=== PATIENT | female | born 1960 | race Caucasian/White ===

== ENCOUNTER 2022-12-14 06:54 | Day surgery (SDC) | payer OTHER ==
[~2022-12-14] VITALS: Ht 157.5 cm; Wt 68.0 kg
[2022-12-14] MEDS ORDERED: fentaNYL citrate 0.05 MG/ML VIAL ONE (07:23)
[2022-12-14] MEDS ORDERED: diphenhydrAMINE 50 MG/ML VIAL ONE (07:23)
[2022-12-14] MEDS ORDERED: MIDAZOLAM 5 MG/5 ML VIAL ONE (07:23)
[2022-12-14] MEDS ORDERED: MIDAZOLAM 2 MG/2 ML VIAL IV ONE (08:20)
[2022-12-14] MEDS ORDERED: fentaNYL citrate 0.05 MG/ML VIAL IVP ONE (08:20)
== END 2022-12-14 08:45 | disposition home or self-care (01) ==
LOC: MDS 06:54 → MMU 06:55 → MDS 08:45
PROVIDERS: ATTEND Internal Medicine Gastroenterology
DX: R10.13 Epigastric pain (principal); K21.9 Gastro-esophageal reflux disease without esophagitis; K29.70 Gastritis, unspecified, without bleeding; K31.89 Other diseases of stomach and duodenum; M79.7 Fibromyalgia; M06.9 Rheumatoid arthritis, unspecified; E78.5 Hyperlipidemia, unspecified; M19.90 Unspecified osteoarthritis, unspecified site; Z88.0 Allergy status to penicillin; Z88.1 Allergy status to other antibiotic agents; Z88.5 Allergy status to narcotic agent; Z79.899 Other long term (current) drug therapy; Z80.0 Family history of malignant neoplasm of digestive organs; Z87.11 Personal history of peptic ulcer disease; Z98.890 Other specified postprocedural states
CPT/HCPCS: 43239; 88305; 88312; 88313; 88342; J2250; J3010; J1200

== ENCOUNTER 2024-01-19 09:47 | Day surgery (SDC) | payer OTHER ==
[~2024-01-19] VITALS: Ht 157.5 cm; Wt 67.1 kg
[2024-01-19] MEDS ORDERED: fentaNYL citrate 0.05 MG/ML VIAL ONE (12:20)
[2024-01-19] MEDS: fentaNYL citrate 0.05 MG/ML VIAL IVP ONE (12:25)
[2024-01-19] MEDS: LIDOCAINE 2% 100 MG/5 ML UJET TP ONE (12:29)
== END 2024-01-19 13:05 | disposition home or self-care (01) ==
LOC: MDS 09:47 → MMU 09:47 → MDS 13:05
PROVIDERS: ATTEND Internal Medicine Gastroenterology
DX: Z12.11 Encounter for screening for malignant neoplasm of colon (principal); K21.9 Gastro-esophageal reflux disease without esophagitis; F41.9 Anxiety disorder, unspecified; M79.7 Fibromyalgia; E78.5 Hyperlipidemia, unspecified; F32.A Depression, unspecified; M06.9 Rheumatoid arthritis, unspecified; Z88.0 Allergy status to penicillin; Z88.1 Allergy status to other antibiotic agents; Z88.5 Allergy status to narcotic agent; Z98.890 Other specified postprocedural states; Z79.899 Other long term (current) drug therapy
CPT/HCPCS: 45378; J3010